=== PATIENT | male | born 1930 | race Caucasian/White ===

== ENCOUNTER 2017-09-12 06:21 | Observation (INO) | payer OTHER ==
[2017-09-12] MEDS ORDERED: ONDANSETRON 4 MG/2 ML VIAL ONE (06:29)
[2017-09-12] MEDS ORDERED: ONDANSETRON 4 MG/2 ML VIAL IVP ONE (06:32)
--- NOTE | 2017-09-12 07:06 | EDPHY ---
H & P Stated Complaint: per ems pt found laying in bed - vomit on chest and bed - apparent aspirati - Medical/Surgical History Hx Asthma: No Hx Chronic Respiratory Disease: No Hx Diabetes: No Hx Cardiac Disease: No Hx Renal Disease: No Hx Cirrhosis: No Hx Alcoholism: No Hx HIV/AIDS: No Hx Splenectomy or Spleen Trauma: No Other PMH: GERD, rt hip fx, left hip fx, falls, hypothyroid, bilat inguinal hernia repair,DEMENTIA - Social History Smoking Status: Never smoked Time Seen by Provider: 09/12/17 06:33 HPI/ROS: Chief Complaint: Vomiting, difficulty breathing HPI: 86-year-old bed ridden male coming in from assisted living ever been found in bed covered in emesis. Patient was having difficulty breathing. Was tachycardic and hypotensive per EMS. He does have advanced directives and a [place] MOST form indicating comfort measures only. Per EMS report the patient has been in his usual state of health. He was found to be tachycardic and hypotensive and hypoxemic. Remainder of history is unavailable. ROS is unavailable secondary to the patient weakness and shortness of breath Social History: No smoking, no alcohol, no recreational drug use Family History: non-contributory Physical Exam: Gen: Awake, confused, in significant respiratory distress, covered in emesis HEENT: Nose: no rhinorrhea Eyes: PERRLA, EOMI Mouth: Dry mucosa Neck: Supple, no JVD Chest: nontender, diffuse coarse rhonchi bilateral lower lung zones Heart: Tachycardic, regular Abd: Soft, non-tender, no guarding Ext: no edema, non-tender Skin: no rash Neuro: CN II-XII intact, Sensation grossly intact, Strength 5/5 in bilateral upper and lower extremities (David Pierce) Constitutional: Initial Vital Signs Temperature (C) 37.9 C 09/12/17 06:28 Heart Rate 145 H 09/12/17 06:28 Respiratory Rate 45 H 09/12/17 06:28 Blood Pressure 79/62 L 09/12/17 06:28 O2 Sat (%) 87 L 09/12/17 06:28 O2 Delivery Mode Non-Rebreather Mask O2 (L/minute) 15 Allergies/Adverse Reactions: No Known Allergies Allergy (Verified 09/12/17 06:31) Home Medications: Medication Instructions Recorded Cyanocobalamin [Vitamin B12 (*)] 1,000 mcg PO DAILY 09/19/16 Acetaminophen [Tylenol 325mg (*)] 325 mg PO DAILY PRN 09/12/17 Medical Decision Making ED Course/Re-evaluation: 86-year-old male with an apparent aspiration. Patient was last seen normal at 2 o'clock morning. When seen again he was covered in emesis with sonorous respirations and difficulty breathing. He is tachycardic, hypoxemic at 87% on a non-rebreather and hypotensive. I have reviewed his [place] MOST form any does indicate he does not want any measures be on comfort care. He is endorsing this now as well. I have discussed at length with the patient's daughter who is now at the patient's bedside. She is agree with the plan. She also does not want any IV antibiotics. Certainly no intubation or other life- sustaining measures. I believe this is appropriate. Patient is from an assisted living. Will discussed with hospitalist regarding admission for arrangement of hospice care. (David Pierce) 9:15 a.m. our behavioral health case manager has called out sick this morning. We have not been able to contact the behavioral health case manager for the hospital. I spoke with Mónica. We agreed to admit the patient for now to the medical floor on comfort measures only. He has received morphine here in the ER. If between now and then he is able to be disposed to hospice that would also be reasonable. (Ishmael Holguin) - Data Points Medications Given: Discontinued Medications Morphine Sulfate (Morphine) 1 mg IVP EDNOW ONE Stop: 09/12/17 09:16 Last Admin: 09/12/17 09:17 Dose: 1 mg Ondansetron HCl (Zofran) 4 mg IVP EDNOW ONE Stop: 09/12/17 06:33 Last Admin: 09/12/17 06:51 Dose: 4 mg Departure - Departure Disposition: [facility] Acute Clinical Impression: Aspiration into airway, Hypotension Condition: Fair
[2017-09-12] MEDS ORDERED: ACETAMINOPHEN 325 MG TAB PO PRN (10:14)
[2017-09-12] MEDS ORDERED: ONDANSETRON DISINTEGRATING 4 MG TAB PO PRN (10:14)
[2017-09-12] MEDS ORDERED: ONDANSETRON 4 MG/2 ML VIAL IVP PRN (10:14)
[2017-09-12] MEDS ORDERED: ATROPINE 1% 5 ML OPHT.BTL SL PRN (11:52)
[2017-09-12] MEDS ORDERED: SCOPOLAMINE HYDROBROMIDE 1 MG/3 DAYS PATCH TD PRN (11:52)
[2017-09-12] MEDS ORDERED: morphINE 10 MG/0.5 ML UDSYR PO PRN (11:52)
[2017-09-12] MEDS ORDERED: HYOSCYAMINE SULFATE 0.125 MG TAB SL PRN (11:52)
--- NOTE | 2017-09-12 12:21 | GHP ---
[f rep st] HISTORY AND PHYSICAL DATE OF ADMISSION: 09/12/2017 CHIEF COMPLAINT: Emesis. HISTORY OF PRESENT ILLNESS: An 86-year-old male. Who is bedridden at assisted living, who was found covered in emesis the morning of presentation. EMS was called by the assisted living facility, and t azul patient was brought to the emergency department for evaluation. The patient has completed advance d directives and most forms indicating his wishes towards the end of his life, which he has been acti vely preparing for currently. Denying pain on my evaluation in the emergency department. He is expe riencing shortness of breath with no ongoing vomiting. PAST MEDICAL HISTORY: 1. Hypertension. 2. Gastroesophageal reflux disease. 3. Hypothyroidism. 4. Chronic urinary retention. 5. Chronic kidney disease. 6. History of upper gastrointestinal bleed. 7. Dementia. SOCIAL HISTORY: Patient lives at assisted living. He does not smoke, drink, or use illicit drugs. FAMILY HISTORY: Both parents are . REVIEW OF SYSTEMS: A 10-point review of systems is negative with the exception of that reported in t azul HPI. PHYSICAL EXAMINATION: VITAL SIGNS: Blood pressure is 73/54, heart rate 126-145, respiratory rate 40 , saturating 86% on 15 L non-rebreather. Febrile at 38.3. GENERAL: This is a cachectic, elderly, f ragile male sitting up in bed with a non-rebreather. HEENT: Exam is notable for dry mucous membrane s. Eye exam is negative for any icterus. CARDIAC: Patient is tachycardic. PULMONARY: Has shallow breathing pattern. GASTROINTESTINAL: Positive bowel sounds. ABDOMEN: Soft. MUSCULOSKELETAL: Ne gative for any lower extremity edema. SKIN: Negative for any rashes or mottling. NEUROLOGIC: The patient is alert. PSYCHIATRIC: Appears withdrawn on my examination. LABORATORY DATA: Baseline creatinine 1.2 to 1.3. Telemetry, which I personally reviewed and interpr eted, shows sinus tachycardia. ASSESSMENT AND PLAN: This is an 86-year-old male presenting for end-of-life care. 1. End-of-life care. Patient has had a steady decline in his assisted living with clear directives as to his wishes at the end of his life. He is participating in conversations currently and expresse s wishes for home hospice without medical interventions. We have consulted [facility], who is a rranging for a safe transition to home hospice from [facility]. We will admit the liz bailey under observation status to bridge the patient to home hospice once they are able to acquire ap propriate durable medical equipment for safe care. We will initiate the comfort care order set. Dominga atwood does not have active complaints of pain but we will provide Roxanol, as well as Zofran for any e volving symptoms. 2. Prophylaxis none. 3. Diet regular as he wishes. 4. Disposition: I expect him less than 2 midnights will be dependent on [facility]'s ability t o coordinate care. 5. I have discussed the case with the emergency room physician, and patient will be triaged to th Oncology for observation. /[id number]/MODL
--- NOTE | 2017-09-12 12:26 | ASMTCASEMG ---
Living Arrangements What is your living Answers: Alone arrangement? Who do you live with? Type Of Residence What kind of residence do Answers: Assisted Living you live in? Type of Residence Facility Name Notes: [facility] Discharge Plan Comments Coordination Status Comments Notes: Pt is a 86 y/o man admitted for aspiration. Pt is a DNR. Pt has a MOST form that indicates comfort measures only. CM met w/ pt and family (Melissa, Basilio, Kp) for dispo planning. Family would like hospice to come in to eval at the hospital. Pt [facility] w[facility] earlier this year but later discharged after 3 months. Initally, family wanted a referral to [facility]. Referral made to [facility] was unable to come eval due to staffing issues. Family's second choice is [facility]. Referral made to [facility]. Maddie from [facility] came to eval. Pt will be admitted to 1N floor. CM notified Kori, the collections and archives director at [facility] of updates. CM to follow. Plan: [facility] at [facility] Date Signed: 09/12/2017 12:25 PM Electronically Signed By:SARA Lujan
[2017-09-12 13:00] VITALS: BP 86/60; PULSE 119; RESP 40; TEMP 99.3; O2SAT 92
--- NOTE | 2017-09-12 16:36 | ASMTCMCOM ---
CM Note CM Note Notes: Plan is for pt to DC tonight back to [facility]. Pt's dtr, Melissa asked that CM check with [facility] to confirm they do not need family to hire add'l help. Kori at [facility] stated that they will adminster meds and take care of pt's needs outside of the 8 hrs/day they have help. Maddie from [facility] arranged for equipment to be in place by 5:30 so 6:00 pickup with J[facility] celis arranged. Hospice providing meds. Final orders will be faxed to [facility]. at [phone] Date Signed: 09/12/2017 04:36 PM Electronically Signed By:Susi Larsen LCSW
--- NOTE | 2017-09-12 16:43 | PDIAF ---
- Diagnosis Diagnosis: failure to thrive - end of life care Code Status: Do Not Resuscitate - Medication Management Discharge Medications: Medications to Continue on Transfer Cyanocobalamin [Vitamin B12 (*)] 1,000 mcg PO DAILY 09/19/16 [Last Taken ] Acetaminophen [Tylenol 325mg (*)] 325 mg PO DAILY PRN 09/12/17 [Last Taken Unknown] Ondansetron Odt [Zofran Odt 4 mg (*)] 4 mg PO Q4HRS PRN #30 tab 09/12/17 [Last Taken Unknown] Discharge Medications: Refer to the Discharge Home Medication list for PRN reason. - Orders Services needed: Home Care, Registered Nurse Home Care Face to Face: I certify that this patient was under my care and that I had the required [id number] encounter meeting the encounter requirements on the discharge day. My findings support the fact that the patient is homebound as defined in Home Care Face to Face Continued: CMS Chapter 7 Medicare Benefits Manual 30.1.1 , The condition of the patient is such that there exists a normal inability to leave home and consequently, leaving home would require a considerable and taxing effort. Diet Texture: Regular Texture Diet Additional: hospice eval and treat - Follow Up Care Current Providers and Referrals: Ayaan Keys MD [Primary Care Provider] - As per Instructions
--- NOTE | 2017-09-13 02:20 | GDS ---
[f rep st] DISCHARGE SUMMARY DISCHARGE DIAGNOSES: 1. End-of-life care. 2. Hypertension. 3. Gastroesophageal reflux disease. 4. Hypothyroidism. 5. Chronic kidney disease. 6. Dementia. HISTORY OF PRESENT ILLNESS: An 86-year-old male who is a bedbound resident of a local [facility], who presented being found down covered in emesis. For details of the patient's initial presentati on, please see the history and physical dated 09/12/2017. CONSULTATIONS: Hospice. PROCEDURES: On the patient were none. HOSPITAL COURSE BY ISSUE: End-of-life care. Patient has had a dramatic decline at his [facility] with anticipated end-of-life care. Patient was brought to the emergency department after being fo und down with emesis all over him. It was determined by the patient and the family, who were all pre sent at the time of initial evaluation, that they wish him to be discharged to home hospice to comple te his end-of-life care. Patient was admitted under observation to allow coordination with [facility] and safe organization of equipment in the home prior to the patient transitioning back. Drake landrum is being discharged to home with [facility] with his family present. MEDICATIONS AT THE TIME OF DISPOSITION: Patient is being sent on new prescription for Zofran for jenny sea. PENDING STUDIES: At the time of this dictation are none. TIME SPENT: I spent greater than 30 minutes in the planning and coordination of this discharge. /[id number]/MODL
--- NOTE | 2017-09-13 09:53 | ASDISCHSUM ---
Discharge Information Plan Status:Hospice-Home Medically Cleared to Leave: Discharge Date:09/12/2017 06:01 PM CM D/C Disposition: ADT D/C Disposition:Hospice Home Projected Discharge Date:09/12/2017 11:00 AM Transportation at D/C: Discharge Delay Reason: Follow-Up Date:09/12/2017 11:00 AM Discharge Slot: Final Diagnosis: Placement Information Referral Type:*Hospice Referral ID:[id number] Provider Name: Address 1: Phone Number: Address 2: Fax Number: City: Selection Factors: State: Patient Contact Information Contact Name:GUERDABENJAMINMILLIELYLY Relationship:Daughter Address:[address] City:[facility] Phone: [facility]/Zip Code:[place] [address] Email: Financial Information Financial Class:Medicare Advantage Plans Primary Plan Desc:[facility] ADVANTAGE PLANS Primary Plan Number:[id number] Secondary Plan Desc: Secondary Plan Number: Assessment Information [facility] Initial CM Assessment Living Arrangements What is your living Answers: Alone arrangement? Who do you live with? Type Of Residence What kind of residence do Answers: Assisted Living you live in? Type of Residence Facility Name Notes: [facility]charge Plan Comments Coordination Status Comments Notes: Pt is a 86 y/o man admitted for aspiration. Pt is a DNR. Pt has a MOST form that indicates comfort measures only. CM met w/ pt and family (Melissa, Kp [place]) for dispo planning. Family would like hospice to come in to eval at the hospital. Pt had hosp[facility] w/ [facility] earlier this year but later discharged after 3 months. Initally, family wanted a referral to [facility]. Referral made to [facility] unable to come eval due to staffing issues. Family's second choice is [facility]. Referral made to [facility]. Maddie from [facility] came to eval. Pt will be admitted to floor. DAINA notified Kori, the on air director at [facility] of updates. CM to follow. Plan: [facility] Date Signed: 09/12/2017 12:25 PM Electronically Signed By:SARA Lujan [facility] CM Progress Note CM Note CM Note Notes: Plan is for pt to DC tonight back to [facility]. Pt's dtr, Melissa asked that CM check with [facility] to confirm they do not need family to hire add'l help. Kori at [facility] stated that they will adminster meds and take care of pt's needs outside of the 8 hrs/day they have help. Maddie from [facility] arranged for equipment to be in place by 5:30 so 6:00 pickup with J[facility]LY[facility] celis arranged. Hospice providing meds. Final orders will be faxed to [facility]. at [phone] Date Signed: 09/12/2017 04:36 PM Electronically Signed By:Susi Larsen LCSW Intervention Information
== END 2017-09-12 18:01 | disposition hospice, home (50) ==
LOC: EDUNIT# → F1N 13:11
PROVIDERS: ADMIT Hospitalist; ATTEND Hospitalist
DX: Z51.5 Encounter for palliative care (principal); T17.910A Gastric contents in respiratory tract, part unspecified causing asphyxiation, initial encounter; F03.90 Unspecified dementia, unspecified severity, without behavioral disturbance, psychotic disturbance, mood disturbance, and anxiety; Y92.122 Bedroom in nursing home as the place of occurrence of the external cause; I10 Essential (primary) hypertension; K21.9 Gastro-esophageal reflux disease without esophagitis; E03.9 Hypothyroidism, unspecified; N18.9 Chronic kidney disease, unspecified
CPT/HCPCS: 96374; 96375; 99285; G0378; J2405